=== PATIENT | female | born 1975 | race American Indian/Alaskan Native ===

== ENCOUNTER 2019-06-02 13:16 | Inpatient (IN) | payer OTHER ==
--- NOTE | 2019-06-02 13:22 | Event Note ---
ED Screening Note ED Screening Note: lower abd discomfort that began a week ago no N/V no diarrhea states she is straining to have BM +urinary frequency no dysuria LNMP: states the beginning of April This initial assessment/diagnostic orders/clinical plan/treatment(s) is/are subject to change based on patients health status, clinical progression and re- assessment by fellow clinical providers in the ED. Further treatment and workup at subsequent clinical providers discretion. Patient/guardian urged not to elope from the ED as their condition may be serious if not clinically assessed and managed. Initial orders include: UA, urine preg, XR abd
--- NOTE | 2019-06-02 14:20 | Emergency Department Report ---
ED Abdominal Pain HPI - General Chief Complaint: Abdominal Pain Stated Complaint: LOW ABDOMINAL PAIN Time Seen by Provider: 06/02/19 13:19 Source: patient Mode of arrival: Ambulatory Limitations: No Limitations - History of Present Illness MD Complaint: abdominal pain -: Gradual, days(s) (1) Location: LLQ Migration to: no migration Severity: moderate, severe Quality: stabbing, aching Consistency: constant Improves With: nothing Worsens With: nothing Associated Symptoms: nausea. denies: fever, hematemesis, hematochezia, hematu mireya, anorexia, syncope - Related Data Previous Rx's Medication Instructions Recorded Last Taken Type Doxycycline Monohydrate [Mondoxyne 100 mg PO BID #28 capsule 11/11/15 Unknown Rx Nl] Allergies Allergy/AdvReac Type Severity Reaction Status Date / Time No Known Allergies Allergy Unverified 06/09/15 14:53 ED Review of Systems ROS: Stated complaint: LOW ABDOMINAL PAIN Other details as noted in HPI Comment: All other systems reviewed and negative ED Past Medical Hx - Past Medical History Previous Medical History?: Yes Hx Hypertension: No Hx Congestive Heart Failure: No Hx Diabetes: No Hx Renal Disease: No Hx Seizures: No Hx Asthma: No Hx COPD: No Hx HIV: No - Surgical History Past Surgical History?: No - Social History Smoking Status: Current Every Day Smoker Substance Use Type: Alcohol, Marijuana - Medications Home Medications: Home Medications Medication Instructions Recorded Confirmed Last Taken Type Doxycycline Monohydrate [Mondoxyne 100 mg PO BID #28 capsule 11/11/15 Unknown Rx Nl] ED Physical Exam - General Limitations: No Limitations General appearance: alert, in no apparent distress - Head Head exam: Present: atraumatic, normocephalic - Eye Eye exam: Present: normal appearance - ENT ENT exam: Present: mucous membranes moist - Neck Neck exam: Present: normal inspection - Respiratory Respiratory exam: Present: normal lung sounds bilaterally. Absent: respiratory distress - Cardiovascular Cardiovascular Exam: Present: regular rate, normal rhythm. Absent: systolic murmur, diastolic murmur, rubs, gallop - GI/Abdominal GI/Abdominal exam: Present: soft, tenderness (left lower quadrant examination. No Rovsing, no Mcqueen Dodson, no tenderness at McBurney's.), guarding, normal bowel sounds. Absent: hyperactive bowel sounds, hypoactive bowel sounds - Extremities Exam Extremities exam: Present: normal inspection - Back Exam Back exam: Present: normal inspection - Neurological Exam Neurological exam: Present: alert, oriented X3 - Psychiatric Psychiatric exam: Present: normal affect, normal mood - Skin Skin exam: Present: warm, dry, intact, normal color. Absent: rash ED Course Vital Signs 06/02/19 13:20 Temperature 99.3 F Pulse Rate 116 H Respiratory 20 Rate Blood Pressure 149/81 O2 Sat by Pulse 99 Oximetry ED Medical Decision Making - Lab Data Result diagrams: 06/02/19 14:18 06/02/19 14:18 - Radiology Data Radiology results: report reviewed [facility] [address] [place] [address] Cat Scan Report Signed Patient: DEYANIRA LECHUGA MR# : [id number] : 1975 Acct:[id number] Age/Sex: 43 / F ADM Date: 06/02/19 Loc: ED Attending Dr: Ordering Physician: FILI PEDRO Date of Service: 06/02/19 Procedure(s): CT abdomen pelvis w con Accession Number(s): [id number] cc: FILI PEDRO CT ABDOMEN AND PELVIS WITH CONTRAST HISTORY: Left lower quadrant abdominal pain. COMPARISON: CT of the abdomen and pelvis on 11/10/2015. TECHNIQUE: Routine abdominal and pelvic CT exam performed following intravenous contrast administration. The patient received 100 mL of IV Omnipaque 300. All CT scans at this location are performed using CT dose reduction for ALARA by means of automated exposure control. FINDINGS: CT ABDOMEN: Lung Bases: No significant abnormality. Liver: No significant abnormality. Biliary: No significant abnormality. Spleen: No significant abnormality. Unenlarged. Pancreas: No significant abnormality. Adrenals: No significant abnormality. Kidneys: No significant abnormality. Lymphatics: No lymphadenopathy. Vasculature: No significant abnormality. Bowel/Peritoneum: No significant abnormality. No free air. No free fluid. Normal appendix. CT PELVIC: : There is an enlarged tubular structure in the left adnexa leading to the right ovary consistent with a hydrosalpinx/pyosalpinx. It measures 6.9 x 5.9 cm in greatest dimension. There is fat stranding adjacent to the dilated fallopian tube is well. The left ovary itself appears relatively normal. There is also mild dilation of the right fallopian tube. There is a small amount of free fluid layering in the pelvis. Lymphatics: No lymphadenopathy. Osseous Structures: No aggressive appearing osseous lesions. Additional Findings: None IMPRESSION: 1. Bilateral hydrosalpinx, left greater than right, with adjacent fat stranding near the left fallopian tube which may indicate pyosalpinx in the proper clinical setting. Signer Name: Enrique Terrazas MD Signed: 06/02/2019 6:21 PM Workstation Name: [id number] Transcribed By: GABBY Dictated By: Enrique Terrazas MD Electronically Authenticated By: Enrique Terrazas MD Signed Date/Time: 06/02/191820 DD/ 16 TD/TT: - Medical Decision Making 43-year-old female was most part of the left lower quadrant abdominal pain fine to have a pyosalpinx on CT of the abdomen abdomen in conjunctivae with a white count. Did discuss the case with SKEIN WASHER him that initially advised to admit to the hospitalist had refused upon: #2 she advised me to admit to mother baby Critical care attestation.: If time is entered above; I have spent that time in minutes in the direct care of this critically ill patient, excluding procedure time. ED Disposition Clinical Impression: Pyosalpinx Disposition: OP ADMIT IP TO THIS HOSP Is pt being admited?: Yes Does the pt Need Aspirin: No Condition: Stable
[2019-06-02] MEDS ORDERED: ONDANSETRON 4 MG/2 ML INJ IV STA (14:32)
[2019-06-02] MEDS ORDERED: SODIUM CHLORIDE 0.9% 1000 ML 1,000 ML IV ONE (14:32)
[2019-06-02] MEDS ORDERED: KETOROLAC 30 MG/1 ML INJ IV STA (14:32)
[2019-06-02 15:07] LABS: Basophils # (Auto) 0.1 K/mm3 (0.0-0.1); Basophils % (Auto) 0.4 % (0.0-1.8); Hematocrit 34.3 % (30.3-42.9); Hemoglobin 11.5 gm/dl (10.1-14.3); Lymphocytes # (Auto) 2.2 K/mm3 (1.2-5.4); Lymphocytes % (Auto) 12.7 % (13.4-35.0); Mean Corpuscular HGB Conc 34 % (30-34); Mean Corpuscular Volume 95 fl (79-97); Monocytes # (Auto) 1.6 K/mm3 (0.0-0.8); Monocytes % (Auto) 8.9 % (0.0-7.3); Platelet Count 444 K/mm3 (140-440); Red Cell Distribution Width 14.7 % (13.2-15.2)
[2019-06-02 15:19] LABS: Alanine Aminotransferase 16 units/L (7-56); Albumin 3.8 g/dL (3.9-5); BUN/Creatinine Ratio 6; Blood Urea Nitrogen 5 mg/dL (7-17); Calcium 9.8 mg/dL (8.4-10.2); Hemolysis Index 2
[2019-06-02 17:04] LABS: Bacteria,Urine 1+ /HPF (Negative); Bilirubin,Urine NEG (Negative); Blood,Urine SM (Negative); Color,Urine Yellow (Yellow); HCG Qualitative,Urine Negative (Negative); Mucus,Urine FEW /HPF; Protein,Urine <15 mg/dL mg/dL (Negative)
--- NOTE | 2019-06-02 18:25 | Cat Scan Report ---
CT ABDOMEN AND PELVIS WITH CONTRAST HISTORY: Left lower quadrant abdominal pain. COMPARISON: CT of the abdomen and pelvis on 11/10/2015. TECHNIQUE: Routine abdominal and pelvic CT exam performed following intravenous contrast administrat ion. The patient received 100 mL of IV Omnipaque 300. All CT scans at this location are performed usi ng CT dose reduction for ALARA by means of automated exposure control. FINDINGS: CT ABDOMEN: Lung Bases: No significant abnormality. Liver: No significant abnormality. Biliary: No significant abnormality. Spleen: No significant abnormality. Unenlarged. Pancreas: No significant abnormality. Adrenals: No significant abnormality. Kidneys: No significant abnormality. Lymphatics: No lymphadenopathy. Vasculature: No significant abnormality. Bowel/Peritoneum: No significant abnormality. No free air. No free fluid. Normal appendix. CT PELVIC: : There is an enlarged tubular structure in the left adnexa leading to the right ovary consistent w ith a hydrosalpinx/pyosalpinx. It measures 6.9 x 5.9 cm in greatest dimension. There is fat stranding adjacent to the dilated fallopian tube is well. The left ovary itself appears relatively normal. The re is also mild dilation of the right fallopian tube. There is a small amount of free fluid layering in the pelvis. Lymphatics: No lymphadenopathy. Osseous Structures: No aggressive appearing osseous lesions. Additional Findings: None IMPRESSION: 1. Bilateral hydrosalpinx, left greater than right, with adjacent fat stranding near the left fallopi an tube which may indicate pyosalpinx in the proper clinical setting. Signer Name: Enrique Terrazas MD Signed: 06/02/2019 6:21 PM Workstation Name: [id number]
[2019-06-02] MEDS ORDERED: PIPERACILLIN/TAZOBACTAM 3.375 3.375 GM/50 ML BAG IV STA (19:07)
[2019-06-02] MEDS: oxyCODONE /ACETAMINOPHEN 5-325MG TAB PO PRN (22:13)
[2019-06-02] MEDS: LACTATED RINGERS 1,000 ML IV SCH (22:14)
[2019-06-02] MEDS: DOXYCYCLINE HYCLATE 100 MG in SODIUM CHLORIDE 0.9% 250ML 250 ML IV SCH (22:21)
[2019-06-03] MEDS: metroNIDAZOLE/NS 500 MG/100 ML 500 MG/100 ML BAG IV SCH ×4 (01:28→19:38)
[2019-06-03] MEDS: oxyCODONE /ACETAMINOPHEN 5-325MG TAB PO PRN ×4 (02:51→18:16)
[2019-06-03] MEDS: ceFAZolin/NS 1 GM/50 ML 1 GM/50 ML BAG IV SCH ×2 (06:30→15:00)
[2019-06-03] MEDS: LACTATED RINGERS 1,000 ML IV SCH (10:08)
[2019-06-03] MEDS: DOXYCYCLINE HYCLATE 100 MG in SODIUM CHLORIDE 0.9% 250ML 250 ML IV SCH ×2 (10:09→22:38)
--- NOTE | 2019-06-03 12:12 | Progress Note ---
Assessment and Plan A/P Abdominal pain Hydrosalpinx wbc high -repeat today on unasyn continue close monitor may consider ID if not resolving Subjective - Subjective Date of service: 06/03/19 Principal diagnosis: abdominal pain, hydrosalpinx Patient reports: no new complaints, no loss of fluid, no vaginal bleeding, no movement normal, no contractions Objective - Vital Signs Vital Signs: Vital Signs - 12hr 06/03/19 06/03/19 06/03/19 02:51 03:51 04:00 Temperature 98.7 F Pulse Rate 75 Respiratory 18 18 18 Rate Blood Pressure Blood Pressure 109/68 [Left] O2 Sat by Pulse Oximetry 06/03/19 06/03/19 07:53 07:59 Temperature 100.4 F H Pulse Rate 89 Respiratory 20 18 Rate Blood Pressure 96/48 Blood Pressure [Left] O2 Sat by Pulse 96 Oximetry - Exam Breasts: normal Cardiovascular: Regular rate, Normal S1 Lungs: Clear to auscultation, Normal air movement Abdomen: Present: normal appearance, soft, normal bowel sounds. Absent: distention, tenderness, guarding Uterus: Present: normal, firm, fundal height below umbilicus. Absent: bogginess, tenderness - Labs Labs: Abnormal Labs 06/02/19 06/02/19 06/02/19 14:18 14:18 Unknown WBC 17.6 H RBC 3.60 L Plt Count 444 H Lymph % (Auto) 12.7 L [place] % (Auto) 8.9 H [place]bot # 1.6 H Seg Neutrophils % 78.0 H Seg Neutrophils # 13.7 H Sodium 133 L Chloride 94.3 L Carbon Dioxide 19 L BUN 5 L Glucose 110 H Albumin 3.8 L Lipase 9 L Urine pH 8.0 H Urine WBC (Auto) 9.0 H Laboratory Results - last 24 hr 06/02/19 06/02/19 06/02/19 14:18 14:18 Unknown WBC 17.6 H RBC 3.60 L Hgb 11.5 Hct 34.3 MCV 95 MCH 32 MCHC 34 RDW 14.7 Plt Count 444 H Lymph % (Auto) 12.7 L [place] % (Auto) 8.9 H Eos % (Auto) 0.0 Baso % (Auto) 0.4 Lymph # 2.2 [place]bot # 1.6 H Eos # 0.0 Baso # 0.1 Seg Neutrophils % 78.0 H Seg Neutrophils # 13.7 H Sodium 133 L Potassium 3.6 Chloride 94.3 L Carbon Dioxide 19 L Anion Gap 23 BUN 5 L Creatinine 0.9 Estimated GFR > 60 BUN/Creatinine Ratio 6 Glucose 110 H Calcium 9.8 Total Bilirubin 0.50 AST 11 ALT 16 Alkaline Phosphatase 83 Total Protein 8.0 Albumin 3.8 L Albumin/Globulin Ratio 0.9 Lipase 9 L Urine Color Yellow Urine Turbidity Slightly-cloudy Urine pH 8.0 H Ur Specific [place] 1.011 Urine Protein <15 mg/dl Urine Glucose (UA) Neg Urine Ketones Neg Urine Blood Sm Urine Nitrite Neg Ur Reducing Substances Not Reportable Urine Bilirubin Neg Urine Ictotest Not Reportable Urine Urobilinogen 4.0 Ur Leukocyte Esterase Mod Urine WBC (Auto) 9.0 H Urine RBC (Auto) 27.0 U Epithel Cells (Auto) 12.0 Urine Bacteria (Auto) 1+ Urine Mucus Few Urine Yeast (Budding) Few Urine HCG, Qual Negative
[2019-06-03 15:38] LABS: Basophils % (Auto) 0.2 % (0.0-1.8); Eosinophils % (Auto) 0.2 % (0.0-4.3); Hematocrit 29.6 % (30.3-42.9); Lymphocytes # (Auto) 1.6 K/mm3 (1.2-5.4); Lymphocytes % (Auto) 10.9 % (13.4-35.0); Mean Corpuscular HGB Conc 34 % (30-34); Mean Corpuscular Volume 96 fl (79-97); Monocytes # (Auto) 1.3 K/mm3 (0.0-0.8); Monocytes % (Auto) 9.2 % (0.0-7.3); Platelet Count 422 K/mm3 (140-440); Red Blood Count 3.09 M/mm3 (3.65-5.03); Red Cell Distribution Width 14.5 % (13.2-15.2)
[2019-06-03 18:06] LABS: Bacteria,Urine 1+ /HPF (Negative)
[2019-06-04] MEDS: oxyCODONE /ACETAMINOPHEN 5-325MG TAB PO PRN ×4 (00:07→22:34)
[2019-06-04] MEDS: ceFAZolin/NS 1 GM/50 ML 1 GM/50 ML BAG IV SCH ×2 (00:12→07:54)
[2019-06-04] MEDS: metroNIDAZOLE/NS 500 MG/100 ML 500 MG/100 ML BAG IV SCH ×4 (02:09→20:48)
[2019-06-04] MEDS: LACTATED RINGERS 1,000 ML IV SCH ×2 (04:15→20:48)
--- NOTE | 2019-06-04 08:13 | Progress Note ---
Assessment and Plan A: HD#3 Bilateral hydrosalpinx on Unasyn with fever this morning P: Consult ID regarding possible antibiotic regimen change Consult Interventional Radiology regarding possible CT guided drainage CBC pending Subjective - Subjective Date of service: 06/04/19 Principal diagnosis: abdominal pain, hydrosalpinx Interval history: Pt reports that her pelvic pain is improving, still left greater than right. She did have a fever of 101.6 around 5:15 am however. CBC for this morning is pending. Patient reports: appetite normal, voiding normally, pain well controlled, flatus, ambulating normally Objective - Vital Signs Latest vital signs: Vital Signs Temp Pulse Resp BP Pulse Ox 06/04/19 05:17 101.6 F H 89 20 118/64 96 06/04/19 01:15 100.2 F H 89 20 131/63 98 06/04/19 00:07 18 06/03/19 20:06 99.4 F 89 18 116/59 98 06/03/19 16:08 98.3 F 78 18 122/69 99 06/03/19 12:33 98.9 F 80 18 110/52 100 Intake and Output 06/03/19 06/04/19 06/04/19 22:59 06:59 14:59 Intake Total 1200 510 Output Total 1200 400 Balance 0 110 Intake: IV 1000 150 ANCEF/NS 1 GM/50 ML 1 gm 50 In 50 ml @ 100 mls/hr IV Q8H VAZQUEZ Rx#:[id number] FLAGYL 500 MG/100 ML 500 100 mg In 100 ml @ 100 mls/hr IV Q6H VAZQUEZ Rx#:[id number] Lactated Ringers 1,000 ml 1000 @ 125 mls/hr IV DIRECT VAZQUEZ Rx#:[id number] Oral 200 Intake, Free Water 360 Output: Urine 1200 400 Void 1200 400 Other: Total, Intake Amount 200 Total, Output Amount 500 400 - Exam Breasts: Present: deferred Cardiovascular: Present: Regular rate Lungs: Present: Clear to auscultation Abdomen: Present: soft (obese ), tenderness (Bilateral lower quadrants, left greater than right ) Extremities: Present: normal - Labs Labs: Abnormal lab results 06/03/19 Range/Units 15:17 WBC 14.4 H (4.5-11.0) K/mm3 RBC 3.09 L (3.65-5.03) M/mm3 Hgb 10.0 L (10.1-14.3) gm/dl Hct 29.6 L (30.3-42.9) % MCH 33 H (28-32) pg Lymph % (Auto) 10.9 L (13.4-35.0) % [place] % (Auto) 9.2 H (0.0-7.3) % [place]ney # 1.3 H (0.0-0.8) K/mm3 Seg Neutrophils % 79.5 H (40.0-70.0) % Seg Neutrophils # 11.5 H (1.8-7.7) K/mm3
[2019-06-04 08:59] LABS: Basophils # (Auto) 0.1 K/mm3 (0.0-0.1); Basophils % (Auto) 0.7 % (0.0-1.8); Eosinophils % (Auto) 0.1 % (0.0-4.3); Hematocrit 29.8 % (30.3-42.9); Hemoglobin 10.2 gm/dl (10.1-14.3); Lymphocytes # (Auto) 1.6 K/mm3 (1.2-5.4); Lymphocytes % (Auto) 11.8 % (13.4-35.0); Mean Corpuscular HGB Conc 34 % (30-34); Mean Corpuscular Volume 95 fl (79-97); Monocytes # (Auto) 1.5 K/mm3 (0.0-0.8); Monocytes % (Auto) 10.5 % (0.0-7.3); Platelet Count 460 K/mm3 (140-440); Red Blood Count 3.15 M/mm3 (3.65-5.03); Red Cell Distribution Width 14.8 % (13.2-15.2)
--- NOTE | 2019-06-04 14:17 | Consultation ---
History of Present Illness - Reason for Consult Consult date: 06/04/19 Sepsis, Pyosalpinx, PID Requesting physician: DAMON PACHECO - History of Present Illness The patient is a 43-year-old female with h/o ectopic a few years ago. She was admitted with 1 week of abdominal pain, fever. Initially had some loose stools, resolved now. She is sexually active. Noted vaginal discharge on the day of admission. Prior h/o Chlamydia. Due to ongoing fevers and CT findings of possible PID, hydro/pyosalpinx ID was consulted for abx recommendations. Review of Systems: General: + for fevers HEENT: no new visual disturbance Respiratory: No cough, sputum, hemoptysis or shortness of breath Cardiovascular: No chest pain, syncope Gastrointestinal: No nausea, vomiting or diarrhea Genitourinary: No dysuria or hematuria Musculoskeletal: No new or worsening neck pain or back pain Neurologic: No headaches, seizures Hematologic: No easy bruising or bleeding Endocrine: No night sweats or acute weight loss Skin: negative for rash, jaundice Psychiatric: No suicidal or homicidal ideation Medications and Allergies Allergies Allergy/AdvReac Type Severity Reaction Status Date / Time No Known Allergies Allergy Unverified 06/09/15 14:53 Home Medications Medication Instructions Recorded Confirmed Last Taken Type No Known Home Medications [No 06/02/19 06/02/19 Unknown History Reported Home Medications] Active Meds: Active Medications Doxycycline Hyclate 100 mg/ (Sodium Chloride) 250 mls @ 250 mls/hr IV Q12HR VAZQUEZ; Protocol Last Admin: 06/03/19 22:38 Dose: 250 mls/hr Documented by: Lactated Ringer's (Lactated Ringers) 1,000 mls @ 125 mls/hr IV DIRECT VAZQUEZ Last Admin: 06/04/19 04:15 Dose: 125 mls/hr Documented by: Metronidazole (Flagyl 500 Mg/100 Ml) 500 mg in 100 mls @ 100 mls/hr IV Q6H VAZQUEZ; Protocol Last Admin: 06/04/19 07:53 Dose: 100 mls/hr Documented by: Ceftriaxone Sodium (Rocephin/Ns 2 Gm/100 Ml) 2 gm in 100 mls @ 200 mls/hr IV Q24HR VAZQUEZ; Protocol Ibuprofen (Ibuprofen) 600 mg PO Q8H PRN PRN Reason: Pain, Mild (1-3) Oxycodone/Acetaminophen (Percocet 5/325) 1 tab PO Q4H PRN PRN Reason: Pain, Moderate (4-6) Last Admin: 06/04/19 08:13 Dose: 1 tab Documented by: Physical Examination - Physical Exam Narrative exam: Physical Exam: Constitutional: Alert, cooperative. No acute distress Head, Ears, Nose: Normocephalic, atraumatic. External ears, nose normal Eyes: Conjunctivae/corneas clear. No icterus. No ptosis. Neck: Supple, no meningeal signs Cardiovascular: S1, S2 normal. Respiratory: Good air entry, clear to auscultation bilaterally GI: b/l lower abdominal tenderness +, bowel sounds normal. No peritoneal signs Musculoskeletal: No pedal edema, no cyanosis. Skin: No rash or abscess Hem/Lymphatic: No palpable cervical or supraclavicular nodes. No lymphangitis Psych: Mood ok. Affect normal Neurological: Awake, alert, oriented. No gross abnormality - Constitutional Vitals: Vital Signs Temp Pulse Resp BP Pulse Ox 98.9 F 81 18 127/63 96 06/04/19 12:13 06/04/19 12:13 06/04/19 12:13 06/04/19 12:13 06/04/19 05:17 Temperature -Last 24 Hours Temperature 98.9 F Temperature 99.6 F Temperature 101.6 F Temperature 100.2 F Temperature 99.4 F Temperature 98.3 F Results - Labs CBC & Chem 7: 06/04/19 08:22 06/02/19 14:18 Labs: Abnormal lab results 06/03/19 06/04/19 Range/Units 15:17 08:22 WBC 14.4 H 13.9 H (4.5-11.0) K/mm3 RBC 3.09 L 3.15 L (3.65-5.03) M/mm3 Hgb 10.0 L (10.1-14.3) gm/dl Hct 29.6 L 29.8 L (30.3-42.9) % MCH 33 H (28-32) pg Plt Count 460 H (140-440) K/mm3 Lymph % (Auto) 10.9 L 11.8 L (13.4-35.0) % [place] % (Auto) 9.2 H 10.5 H (0.0-7.3) % [place] # 1.3 H 1.5 H (0.0-0.8) K/mm3 Seg Neutrophils % 79.5 H 76.9 H (40.0-70.0) % Seg Neutrophils # 11.5 H 10.7 H (1.8-7.7) K/mm3 - Imaging and Cardiology CT scan - abdomen: report reviewed, image reviewed (b/l hydro v/s pyosalpinx) Assessment and Plan Cultures: A/P: 43/F with prior h/o ectopic , Chlamydia admitted with lower abdominal pain and fever, found to have: 1) Sepsis 2) Leucocytosis 3) B/L Hydrosalpinx v/s Pyosalpinx Recs: Cefazolin switched to Ceftriaxone continue Flagyl and Doxycycline STD screen ordered (GC, syphilis and HIV - patient agreeable) Awaiting IR drainage. Please send fluid for cultures Will follow. Jean-Claude Lockhart MD, FACP [facility] C: [phone] O: [phone] F: [phone]
--- NOTE | 2019-06-04 14:28 | Event Note ---
Date: 06/04/[address] scan and vitals/labs. Plan for CT guided placement of a 8 Fr drain in the pyosalpinx tomorrow. NPO after MN except sips of water with meds.
[2019-06-04] MEDS: IBUPROFEN 600 MG TAB PO PRN ×2 (14:44→23:49)
[2019-06-04] MEDS: cefTRIAXone/NS 2 GM/100 ML 2 GM/100 ML BAG IV SCH (15:00)
[2019-06-04] MEDS: DOXYCYCLINE HYCLATE 100 MG in SODIUM CHLORIDE 0.9% 250ML 250 ML IV SCH ×2 (17:02→22:22)
--- NOTE | 2019-06-05 01:15 | Ultrasound Report ---
ULTRASOUND PELVIS INDICATION: abdominal pain. TECHNIQUE: Pelvic ultrasound from 11/10/2015. Duplex Color Doppler used: Yes. COMPARISON: None available FINDINGS: Uterus: Present. Size: 13.5 x 6.8 x 8.8 cm. Endometrial complex: Normal measuring 0.11 cm. Mass lesions: Multiple fibroids are seen throughout the uterus measuring up to 5 cm. Additional findings: None. Right Ovary: Size: 5.0 x 4.2 x 5.1 cm Blood flow: Normal. Cyst or mass: There is a 3 cm cyst without visualization of solid lesions. Left Ovary: Size: 4.3 x 3.0 x 3.3 cm Blood flow: Normal. Cyst or mass: None. Urinary Bladder: No significant abnormality. Free Fluid: None. Additional Findings: None. IMPRESSION: 1. No acute sonographic abnormality of the pelvis. 2. Multiple uterine fibroids. 3. Right ovarian cyst measuring 3 cm is likely benign. No follow-up imaging is indicated at this time . Signer Name: Jemal Cisneros MD Signed: 06/05/2019 1:10 AM Workstation Name: [id number]
[2019-06-05] MEDS: metroNIDAZOLE/NS 500 MG/100 ML 500 MG/100 ML BAG IV SCH ×4 (04:00→20:31)
--- NOTE | 2019-06-05 08:33 | Progress Note ---
Assessment and Plan A/P HD#2 Hydrosalpinx, sepsis ID changed abx to ceftriaxone , flagy, and doxy awaiting IR drainage continue present mgt Subjective - Subjective Date of service: 06/05/19 Principal diagnosis: abdominal pain, hydrosalpinx Patient reports: appetite normal, voiding normally, pain well controlled Objective - Vital Signs Latest vital signs: Vital Signs Temp Pulse Resp BP BP Pulse Ox 06/05/19 05:03 98.3 F 81 20 123/61 99 06/05/19 01:29 99.5 F 80 18 123/68 100 06/04/19 20:21 98.2 F 75 20 116/64 99 06/04/19 16:54 98.4 F 77 18 101/53 06/04/19 12:13 98.9 F 81 18 127/63 Intake and Output 06/04/19 06/05/19 06/05/19 23:59 07:59 15:59 Intake Total 1310 100 Output Total 900 Balance 410 100 Intake: IV 350 100 Doxycycline Hyclate 100 250 mg In NaCl 0.9% 250Ml 250 ml @ 250 mls/hr IV Q12HR [facility]ZQUEZ Rx#:[id number] FLAGYL 500 MG/100 ML 500 100 100 mg In 100 ml @ 100 mls/hr IV Q6H VAZQUEZ Rx#:[id number] Oral 480 Intake, Free Water 480 Output: Urine 900 Void 900 Other: Total, Intake Amount 480 Total, Output Amount 900 # Voids Void 1 1 - Exam Breasts: Present: normal Cardiovascular: Present: Regular rate, Normal S1 Lungs: Present: Clear to auscultation, Normal air movement Abdomen: Present: normal appearance, soft, normal bowel sounds. Absent: distention, tenderness, guarding Vulva: both: normal Uterus: Present: normal Extremities: Present: normal Deep Tendon Reflex Grade: Normal +2 - Labs Labs: Abnormal lab results 06/04/19 Range/Units 08:22 WBC 13.9 H (4.5-11.0) K/mm3 RBC 3.15 L (3.65-5.03) M/mm3 Hct 29.8 L (30.3-42.9) % Plt Count 460 H (140-440) K/mm3 Lymph % (Auto) 11.8 L (13.4-35.0) % [place] % (Auto) 10.5 H (0.0-7.3) % Bond # 1.5 H (0.0-0.8) K/mm3 Seg Neutrophils % 76.9 H (40.0-70.0) % Seg Neutrophils # 10.7 H (1.8-7.7) K/mm3
[2019-06-05] MEDS: DOXYCYCLINE HYCLATE 100 MG in SODIUM CHLORIDE 0.9% 250ML 250 ML IV SCH ×3 (08:49→22:25)
[2019-06-05] MEDS: oxyCODONE /ACETAMINOPHEN 5-325MG TAB PO PRN ×4 (08:50→23:07)
[2019-06-05] MEDS ORDERED: MIDAZOLAM 5 MG/5 ML INJ MDV IV ONE ×2 (11:26→12:24)
[2019-06-05] MEDS ORDERED: fentaNYL 100 MCG/2 ML INJ IV ONE ×2 (11:26→13:18)
[2019-06-05] MEDS ORDERED: fentaNYL 100 MCG/2 ML INJ ONE ×2 (12:25→12:47)
[2019-06-05] MEDS ORDERED: LIDOCAINE 1%/EPINEPHRINE 1:100,000 VIAL (20 ML) INFILTRATI ONE (12:39)
--- NOTE | 2019-06-05 13:28 | Post Operative Note ---
Date of procedure: 06/05/19 Pre-op diagnosis: Bilateral pyosalpinx Post-op diagnosis: same Findings: CT guided drainage of the right pyosalpinx with a 8 Fr drain - 30 mL green purulent material removed Procedure: CT guided drainage of the right pyosalpinx with a 8 Fr drain - 30 mL green purulent material removed Anesthesia: local (w/ conscious sedation) Surgeon: ORTIZ GILL Estimated blood loss: minimal Condition: stable Disposition: floor
[2019-06-05] MEDS: MORPHINE 2 MG/1 ML INJ IV PRN ×2 (14:30→20:41)
--- NOTE | 2019-06-05 15:05 | Progress Note ---
Assessment and Plan Cultures: Blood culture: negative IR aspirate culture: in process. GPC on Gram stain. HIV, Syphilis negative. A/P: 43/F with prior h/o ectopic , Chlamydia admitted with lower abdominal pain and fever, found to have: 1) Sepsis 2) Leucocytosis 3) B/L Hydrosalpinx v/s Pyosalpinx: s/p CT guided drainage of the right pyosalpinx with a 8 Fr drain - 30 mL green purulent material removed Recs: continue Ceftriaxone, Flagyl and Doxycycline f/u IR drainage culture monitor fever and WBC, if improved, could do PO abx upon discharge depending on culture results Jean-Claude Lockhart MD, FACP [facility] C: [phone] O: [phone] F: [phone] Subjective Date of service: 06/05/19 Principal diagnosis: abdominal pain, hydrosalpinx Interval history: No fever. Had CT guided drainage of the right pyosalpinx with a 8 Fr drain - 30 mL green purulent material removed by Dr. Fuentes. Complains of ongoing abdominal pain, no improvement. Objective - Exam Narrative Exam: Physical Exam: Constitutional: Alert, cooperative. No acute distress Head, Ears, Nose: Normocephalic, atraumatic. External ears, nose normal Eyes: Conjunctivae/corneas clear. No icterus. No ptosis. Neck: Supple, no meningeal signs Cardiovascular: S1, S2 normal. Respiratory: Good air entry, clear to auscultation bilaterally GI: b/l lower abdominal tenderness +, R abdomen dressing +. bowel sounds normal. Musculoskeletal: No pedal edema, no cyanosis. Skin: No rash or abscess Hem/Lymphatic: No palpable cervical or supraclavicular nodes. No lymphangitis Psych: Mood ok. Affect normal Neurological: Awake, alert, oriented. No gross abnormality - Constitutional Vitals: Vital Signs Temp Pulse Resp BP Pulse Ox 98.3 F 83 20 115/69 97 06/05/19 07:21 06/05/19 13:30 06/05/19 13:30 06/05/19 13:30 06/05/19 13:30 Temperature -Last 24 Hours Temperature 98.3 F Temperature 98.3 F Temperature 99.5 F Temperature 98.2 F Temperature 98.4 F - Labs CBC & Chem 7: 06/04/19 08:22 06/02/19 14:18
[2019-06-05] MEDS: cefTRIAXone/NS 2 GM/100 ML 2 GM/100 ML BAG IV SCH (16:54)
[2019-06-05] MEDS: LACTATED RINGERS 1,000 ML IV SCH (22:56)
[2019-06-06] MEDS: MORPHINE 2 MG/1 ML INJ IV PRN ×2 (03:08→10:35)
[2019-06-06] MEDS: metroNIDAZOLE/NS 500 MG/100 ML 500 MG/100 ML BAG IV SCH ×4 (03:09→21:31)
[2019-06-06 04:10] LABS: Basophils % (Auto) 0.2 % (0.0-1.8); Eosinophils % (Auto) 0.1 % (0.0-4.3); Hematocrit 28.7 % (30.3-42.9); Hemoglobin 9.8 gm/dl (10.1-14.3); Lymphocytes # (Auto) 1.4 K/mm3 (1.2-5.4); Lymphocytes % (Auto) 8.6 % (13.4-35.0); Mean Corpuscular HGB Conc 34 % (30-34); Mean Corpuscular Volume 96 fl (79-97); Monocytes % (Auto) 5.9 % (0.0-7.3); Platelet Count 519 K/mm3 (140-440); Red Cell Distribution Width 15.1 % (13.2-15.2)
[2019-06-06] MEDS: oxyCODONE /ACETAMINOPHEN 5-325MG TAB PO PRN ×2 (07:02→16:19)
[2019-06-06] MEDS: cefTRIAXone/NS 2 GM/100 ML 2 GM/100 ML BAG IV SCH (10:33)
[2019-06-06] MEDS: LACTATED RINGERS 1,000 ML IV SCH ×2 (10:35→23:50)
[2019-06-06] MEDS: DOXYCYCLINE HYCLATE 100 MG in SODIUM CHLORIDE 0.9% 250ML 250 ML IV SCH ×2 (11:00→21:31)
--- NOTE | 2019-06-06 12:11 | Progress Note ---
Assessment and Plan A: HD#4 Bilateral hydrosalpinx on Rocephin, Flagyl and Doxycycline POD#1 s/p CT guided drainage P: Continue routine postop care Restart Toradol Subjective - Subjective Date of service: 06/06/19 Principal diagnosis: abdominal pain, hydrosalpinx Interval history: Pt reports suboptimal pain control. Patient reports: appetite normal, voiding normally, flatus, pain poorly controlled, ambulating normally Objective - Vital Signs Latest vital signs: Vital Signs Temp Pulse Pulse Pulse Pulse Resp Resp 06/06/19 08:20 98.8 F 86 18 06/06/19 05:30 98.8 F 87 18 06/06/19 01:24 98.4 F 89 20 06/05/19 20:31 98.7 F 84 20 06/05/19 13:30 83 06/05/19 13:15 88 06/05/19 13:00 86 19 06/05/19 12:55 87 21 06/05/19 12:50 87 19 06/05/19 12:45 83 15 06/05/19 12:40 74 18 06/05/19 12:35 70 20 06/05/19 12:18 69 Resp Resp BP BP BP BP Pulse Ox 06/06/19 08:20 136/74 97 06/06/19 05:30 128/70 93 06/06/19 01:24 123/62 94 06/05/19 20:31 126/76 95 06/05/19 13:30 20 115/69 06/05/19 13:15 15 114/71 06/05/19 13:00 119/64 06/05/19 12:55 119/62 06/05/19 12:50 131/67 06/05/19 12:45 132/77 06/05/19 12:40 139/77 06/05/19 12:35 130/77 06/05/19 12:18 18 140/77 Pulse Ox Pulse Ox Pulse Ox 06/06/19 08:20 06/06/19 05:30 06/06/19 01:24 06/05/19 20:31 06/05/19 13:30 97 06/05/19 13:15 99 06/05/19 13:00 99 06/05/19 12:55 99 06/05/19 12:50 99 06/05/19 12:45 98 06/05/19 12:40 98 06/05/19 12:35 98 06/05/19 12:18 100 Intake and Output 06/05/19 06/06/19 06/06/19 22:59 06:59 14:59 Intake Total 100 1340 240 Output Total 500 550 Balance 100 840 -310 Intake: IV 100 1100 FLAGYL 500 MG/100 ML 500 100 100 mg In 100 ml @ 100 mls/hr IV Q6H [facility] Rx#:[id number] Lactated Ringers 1,000 ml 1000 @ 125 mls/hr IV DIRECT [facility]ZQUEZ Rx#:[id number] Oral 240 Intake, Free Water 240 Output: Urine 500 550 Void 500 550 Other: Total, Intake Amount 240 Total, Output Amount 500 550 Voiding Method Toilet # Voids Void 1 2 - Exam Breasts: Present: deferred Cardiovascular: Present: Regular rate Lungs: Present: Clear to auscultation Abdomen: Present: soft Incision: Present: dressed - Labs Labs: Abnormal lab results 06/06/19 Range/Units 03:52 WBC 16.4 H (4.5-11.0) K/mm3 RBC 3.00 L (3.65-5.03) M/mm3 Hgb 9.8 L (10.1-14.3) gm/dl Hct 28.7 L (30.3-42.9) % MCH 33 H (28-32) pg Plt Count 519 H (140-440) K/mm3 Lymph % (Auto) 8.6 L (13.4-35.0) % [place] # 1.0 H (0.0-0.8) K/mm3 Seg Neutrophils % 85.2 H (40.0-70.0) % Seg Neutrophils # 13.9 H (1.8-7.7) K/mm3
[2019-06-06] MEDS: KETOROLAC 30 MG/1 ML INJ IV SCH ×2 (12:34→20:15)
--- NOTE | 2019-06-06 13:37 | Progress Note ---
Assessment and Plan Cultures: Blood culture: negative IR aspirate culture: in process. GPC on Gram stain. HIV, Syphilis negative. A/P: 43/F with prior h/o ectopic , Chlamydia admitted with lower abdominal pain and fever, found to have: 1) Sepsis 2) Leucocytosis 3) B/L Hydrosalpinx v/s Pyosalpinx: s/p CT guided drainage of the right pyosalpinx with a 8 Fr drain - 30 mL green purulent material removed Recs: WBC remains elevated. Continue Ceftriaxone, Flagyl and Doxycycline f/u IR drainage culture results monitor fever and WBC, if improved, could do PO abx upon discharge depending on culture results If WBC continues to rise, may need to consider additional drainage Jean-Claude Lockhart MD, FACP [facility] ([facility] C: [phone] O: [phone] F: [phone] Subjective Date of service: 06/06/19 Principal diagnosis: abdominal pain, hydrosalpinx Interval history: No fever. Sleepy but appears comfortable. Eating well. States she still has abdominal pain but better controlled with meds. Objective - Exam Narrative Exam: Physical Exam: Constitutional: Alert, cooperative. No acute distress Head, Ears, Nose: Normocephalic, atraumatic. External ears, nose normal Eyes: Conjunctivae/corneas clear. No icterus. No ptosis. Neck: Supple, no meningeal signs Cardiovascular: S1, S2 normal. Respiratory: Good air entry, clear to auscultation bilaterally GI: b/l lower abdominal tenderness +, R abdomen dressing +. bowel sounds normal. Musculoskeletal: No pedal edema, no cyanosis. Skin: No rash or abscess Hem/Lymphatic: No palpable cervical or supraclavicular nodes. No lymphangitis Psych: Mood ok. Affect normal Neurological: Awake, alert, oriented. No gross abnormality - Constitutional Vitals: Vital Signs Temp Pulse Resp BP Pulse Ox 98.8 F 86 18 136/74 97 06/06/19 08:20 06/06/19 08:20 06/06/19 08:20 06/06/19 08:20 06/06/19 08:20 Temperature -Last 24 Hours Temperature 98.8 F Temperature 98.8 F Temperature 98.4 F Temperature 98.7 F - Labs CBC & Chem 7: 06/06/19 03:52 06/02/19 14:18 Labs: Abnormal lab results 06/06/19 Range/Units 03:52 WBC 16.4 H (4.5-11.0) K/mm3 RBC 3.00 L (3.65-5.03) M/mm3 Hgb 9.8 L (10.1-14.3) gm/dl Hct 28.7 L (30.3-42.9) % MCH 33 H (28-32) pg Plt Count 519 H (140-440) K/mm3 Lymph % (Auto) 8.6 L (13.4-35.0) % [place] # 1.0 H (0.0-0.8) K/mm3 Seg Neutrophils % 85.2 H (40.0-70.0) % Seg Neutrophils # 13.9 H (1.8-7.7) K/mm3
[2019-06-07] MEDS: metroNIDAZOLE/NS 500 MG/100 ML 500 MG/100 ML BAG IV SCH ×4 (01:45→21:27)
[2019-06-07] MEDS: KETOROLAC 30 MG/1 ML INJ IV SCH ×4 (01:45→17:47)
[2019-06-07 06:08] LABS: Basophils % (Auto) 0.3 % (0.0-1.8); Eosinophils % (Auto) 0.2 % (0.0-4.3); Hematocrit 27.1 % (30.3-42.9); Hemoglobin 9.3 gm/dl (10.1-14.3); Lymphocytes # (Auto) 1.5 K/mm3 (1.2-5.4); Lymphocytes % (Auto) 11.8 % (13.4-35.0); Mean Corpuscular HGB Conc 34 % (30-34); Mean Corpuscular Volume 95 fl (79-97); Monocytes % (Auto) 7.7 % (0.0-7.3); Platelet Count 536 K/mm3 (140-440); Red Blood Count 2.86 M/mm3 (3.65-5.03); Red Cell Distribution Width 15.1 % (13.2-15.2)
--- NOTE | 2019-06-07 10:18 | Cat Scan Report ---
CT ABDOMEN AND PELVIS WITH CONTRAST HISTORY: pyosalpynx. COMPARISON: 06/03/2019. 06/05/2019. TECHNIQUE: Helical CT images of the abdomen and pelvis were obtained following administration of intr avenous contrast. Sagittal and coronal reformatted images were reviewed. All CT scans at this [facility] are performed using CT dose reduction for ALARA by means of automated exposure control. CONTRAST: 100 ml of intravenous contrast administered. FINDINGS: Abdomen/pelvis: The percutaneous drain in place in the right fallopian tubule remains in good positi on. Fluid/pus in the right fallopian tubule has essentially resolved. There is a mild degree of fluid inferior to the fallopian tubule which is unchanged and measuring 7.5 x 4.5 cm in axial plane. This may represent an ovarian cyst. Left hydrosalpinx or pyosalpinx has decreased by 10-20%. Mild uterine fibroid disease is again noted. Normal liver, biliary system, pancreas, spleen, kidneys, adrenal glands, aorta, bladder and bowel loo ps. Normal appendix. Lungs/bones: Trace bilateral pleural effusions have developed. Normal heart size. Mild lumbar spondy losis. IMPRESSION: Right pyosalpinx has essentially resolved. The percutaneous drain remains in good position. There is however simple or appearing fluid collection inferior to the right fallopian tubule which may represe nt a right ovarian cyst. See above. 10-20% decrease in left hydrosalpinx/pyosalpinx. Mild uterine fibroid disease. New trace bilateral pleural effusions. Signer Name: Ra Willard Jr, MD Signed: 06/07/2019 10:14 AM Workstation Name: [id number]
--- NOTE | 2019-06-07 10:38 | Progress Note ---
Assessment and Plan Cultures: Blood culture: negative IR aspirate culture: no growth thus far. GPC on Gram stain. HIV, Syphilis negative. A/P: 43/F with prior h/o ectopic , Chlamydia admitted with lower abdominal pain and fever, found to have: 1) Sepsis 2) Leucocytosis 3) B/L Hydrosalpinx v/s Pyosalpinx: s/p CT guided drainage of the right pyosalpinx with a 8 Fr drain - 30 mL green purulent material removed Recs: cultures have remained negative WBC improving. CT shows interval resolution of R pyosalpinx, also improving L side From ID standpoint, patient can be discharged on PO Augmentin 875 mg BID x 14 days (prescription printed and given to chief unit forester) Follow up outpatient with KNO[facility]ER Jean-Claude Lockhart MD, FACP [facility] ([facility] C: [phone] O: [phone] F: [phone] Subjective Date of service: 06/07/19 Principal diagnosis: abdominal pain, hydrosalpinx Interval history: Remains afebrile. Pain much improved. Overall also feeling much better. Had CT done this morning. Objective - Exam Narrative Exam: Physical Exam: Constitutional: Alert, cooperative. No acute distress Head, Ears, Nose: Normocephalic, atraumatic. External ears, nose normal Eyes: Conjunctivae/corneas clear. No icterus. No ptosis. Neck: Supple, no meningeal signs Cardiovascular: S1, S2 normal. Respiratory: Good air entry, clear to auscultation bilaterally GI: minimal tenderness on the R side, R abdomen dressing +. bowel sounds normal. Musculoskeletal: No pedal edema, no cyanosis. Skin: No rash or abscess Hem/Lymphatic: No palpable cervical or supraclavicular nodes. No lymphangitis Psych: Mood ok. Affect normal Neurological: Awake, alert, oriented. No gross abnormality - Constitutional Vitals: Vital Signs Temp Pulse Resp BP Pulse Ox 98.9 F 81 18 130/67 98 06/07/19 09:05 06/07/19 09:05 06/07/19 09:05 06/07/19 09:05 06/07/19 09:05 Temperature -Last 24 Hours Temperature 98.9 F Temperature 99.2 F Temperature 99.5 F Temperature 98.2 F Temperature 98.3 F Temperature 97.8 F - Labs CBC & Chem 7: 06/07/19 05:30 06/02/19 14:18 Labs: Abnormal lab results 06/07/19 Range/Units 05:30 WBC 13.1 H (4.5-11.0) K/mm3 RBC 2.86 L (3.65-5.03) M/mm3 Hgb 9.3 L (10.1-14.3) gm/dl Hct 27.1 L (30.3-42.9) % MCH 33 H (28-32) pg Plt Count 536 H (140-440) K/mm3 Lymph % (Auto) 11.8 L (13.4-35.0) % [place] % (Auto) 7.7 H (0.0-7.3) % [place] # 1.0 H (0.0-0.8) K/mm3 Seg Neutrophils % 80.0 H (40.0-70.0) % Seg Neutrophils # 10.5 H (1.8-7.7) K/mm3 - Imaging and cardiology CT scan - abdomen: report reviewed, image reviewed CT scan - pelvis: report reviewed, image reviewed (almost resolution of R pyosalpinx. Left also about 20% improved.)
--- NOTE | 2019-06-07 10:52 | Progress Note ---
Assessment and Plan Patient does have persistent left pyosalpinx. All this is diminished in size, this may ultimately require drainage. The CT scanner on which drains are performed is broken today. When it is repaired, we may reevaluate and reassess the patient to determine if the drain placement is necessary. Patient will likely require to be on long-term antibiotics to clear her infections Subjective Date of service: 06/07/19 Principal diagnosis: abdominal pain, hydrosalpinx Interval history: Patient with a history of bilateral pyosalpinx status post placement of a drainage catheter on the right 2 days prior. The patient's white count was elevated yesterday however has drifted down today to 13. The patient states that her abdominal pain has improved. The patient overall feels better. A repeat CT scan was ordered and performed which demonstrates persistent left pyosalpinx which is diminished in size. Objective - Constitutional Vitals: Vital Signs - 12hr 06/07/19 06/07/19 06/07/19 01:40 01:45 05:00 Temperature 99.5 F Pulse Rate 89 Respiratory 18 18 18 Rate Blood Pressure 125/72 O2 Sat by Pulse 100 Oximetry 06/07/19 06/07/19 06:23 09:05 Temperature 99.2 F 98.9 F Pulse Rate 78 81 Respiratory 18 18 Rate Blood Pressure 127/62 130/67 O2 Sat by Pulse 100 98 Oximetry General appearance: Present: no acute distress - EENT Eyes: EOM intact ENT: hearing intact - Neck Neck: supple, normal ROM - Respiratory Respiratory effort: normal - Gastrointestinal General gastrointestinal: Present: soft - Genitourinary Female genitourinary: deferred - Psychiatric Psychiatric: appropriate mood/affect, cooperative - Labs CBC & Chem 7: 06/07/19 05:30 06/02/19 14:18 Labs: Abnormal lab results 06/07/19 Range/Units 05:30 WBC 13.1 H (4.5-11.0) K/mm3 RBC 2.86 L (3.65-5.03) M/mm3 Hgb 9.3 L (10.1-14.3) gm/dl Hct 27.1 L (30.3-42.9) % MCH 33 H (28-32) pg Plt Count 536 H (140-440) K/mm3 Lymph % (Auto) 11.8 L (13.4-35.0) % [place] % (Auto) 7.7 H (0.0-7.3) % [place] # 1.0 H (0.0-0.8) K/mm3 Seg Neutrophils % 80.0 H (40.0-70.0) % Seg Neutrophils # 10.5 H (1.8-7.7) K/mm3 Medications & Allergies - Medications Allergies/Adverse Reactions: Allergies No Known Allergies Allergy (Unverified 06/09/15 14:53) Home Medications: Home Medications Medication Instructions Recorded Confirmed Last Taken Type Amoxicillin/Potassium Clav 1 each PO BID 14 Days #28 tablet 06/07/19 Unknown Rx [Augmentin 350-291 Tablet] Active Medications: Generic Name Dose Route Start Last Admin Trade Name Freq PRN Reason Stop Dose Admin Doxycycline Hyclate 100 mg/ 250 mls @ 250 mls/hr 06/02/19 22:00 06/06/19 21:31 Sodium Chloride IV 250 mls/hr Q12HR [facility]ZQUEZ Administration Protocol Lactated Ringer's 1,000 mls @ 125 mls/hr 06/02/19 22:00 06/06/19 23:50 Lactated Ringers IV 125 mls/hr DIRECT VAZQUEZ Administration Metronidazole 500 mg in 100 mls @ 100 mls/hr 06/04/19 02:00 06/07/19 08:26 Flagyl 500 Mg/100 Ml IV 100 mls/hr Q6H [facility]ZQUEZ Administration Protocol Ceftriaxone Sodium 2 gm in 100 mls @ 200 mls/hr 06/04/19 15:00 06/06/19 10:33 Rocephin/Ns 2 Gm/100 Ml IV 200 mls/hr Q24HR [facility] Administration Protocol Ibuprofen 600 mg 06/02/19 21:45 06/04/19 23:49 Ibuprofen PO 600 mg Q8H PRN Administration Pain, Mild (1-3) Ketorolac Tromethamine 30 mg 06/06/19 12:00 06/07/19 05:00 Toradol IV 06/11/19 11:59 30 mg Q6HR VAZQUEZ Administration Morphine Sulfate 2 mg 06/05/19 14:18 06/06/19 10:35 Morphine IV 2 mg Q6H PRN Administration Pain, Moderate (4-6) Oxycodone/Acetaminophen 2 tab 06/05/19 14:19 06/06/19 16:19 Percocet 5/325 PO 2 tab Q4H PRN Administration Pain, Moderate (4-6)
[2019-06-07] MEDS: DOXYCYCLINE HYCLATE 100 MG in SODIUM CHLORIDE 0.9% 250ML 250 ML IV SCH ×2 (11:13→22:46)
[2019-06-07] MEDS: cefTRIAXone/NS 2 GM/100 ML 2 GM/100 ML BAG IV SCH (12:31)
[2019-06-07] MEDS: LACTATED RINGERS 1,000 ML IV SCH (21:26)
[2019-06-08] MEDS: KETOROLAC 30 MG/1 ML INJ IV SCH (00:20)
[2019-06-08] MEDS: metroNIDAZOLE/NS 500 MG/100 ML 500 MG/100 ML BAG IV SCH (05:01)
[2019-06-08] MEDS: IBUPROFEN 600 MG TAB PO PRN ×2 (05:38→22:11)
--- NOTE | 2019-06-08 14:39 | Progress Note ---
Assessment and Plan A/P POD2 s/p drainage of pyosalpinx followed by IR consider d/c home IV infiltrated changed meds to augmentin which was recommended for 2 weeks Subjective - Subjective Date of service: 06/08/19 Principal diagnosis: abdominal pain, hydrosalpinx Patient reports: appetite normal, voiding normally, pain well controlled, ambulating normally : doing well Objective - Vital Signs Latest vital signs: Vital Signs Temp Pulse Resp BP BP Pulse Ox 06/08/19 11:51 98.6 F 82 18 121/92 06/08/19 08:02 97.6 F 71 18 125/71 06/08/19 06:38 18 06/08/19 06:15 99.2 F 82 18 130/66 100 06/08/19 05:38 18 06/08/19 01:46 98.7 F 83 18 130/69 97 06/08/19 00:50 18 06/08/19 00:20 18 06/07/19 20:23 98.7 F 78 18 128/66 98 06/07/19 16:47 98.4 F 79 18 133/67 96 Intake and Output 06/07/19 06/08/19 06/08/19 23:59 07:59 15:59 Intake Total 580 240 960 Output Total 1010 10 Balance -430 230 960 Intake: IV 100 FLAGYL 500 MG/100 ML 500 100 mg In 100 ml @ 100 mls/hr IV Q6H [facility] Rx#:[id number] Oral 240 960 Intake, Free Water 240 240 Output: Drainage 10 10 Left Abdomen 10 10 Urine 1000 Void 1000 Other: Total, Intake Amount 240 480 Total, Output Amount 400 10 # Voids Void 1 1 - Exam Breasts: Present: normal Cardiovascular: Present: Regular rate, Normal S1 Lungs: Present: Clear to auscultation, Normal air movement Abdomen: Present: normal appearance, soft, normal bowel sounds. Absent: disten tion, tenderness, guarding Uterus: Present: normal, firm, fundal height below umbilicus. Absent: bogginess, tenderness Extremities: Present: normal Incision: Present: normal, dry, intact
--- NOTE | 2019-06-08 18:49 | Progress Note ---
Assessment and Plan Cultures: Blood culture: negative IR aspirate culture: no growth thus far. GPC on Gram stain. HIV, Syphilis negative. A/P: 43/F with prior h/o ectopic , Chlamydia admitted with lower abdominal pain and fever, found to have: 1) Sepsis 2) Leucocytosis 3) B/L Hydrosalpinx v/s Pyosalpinx: s/p CT guided drainage of the right pyosalpinx with a 8 Fr drain - 30 mL green purulent material removed Recs: continue antibiotics awaiting plan regarding possible drainage of L side when discharged, would do PO Augmentin 875 mg BID x 14 days (prescription printed yesterday and given to window unit air conditioning mechanic) Follow up outpatient with [employer] PRODUCT MANAGER Please call with questions. Jean-Claude Lockhart MD, FACP [facility] C: [phone] O: [phone] F: [phone] Subjective Date of service: 06/08/19 Principal diagnosis: abdominal pain, hydrosalpinx Interval history: No fever. Feels well. No complaints. Objective - Exam Narrative Exam: Physical Exam: Constitutional: Alert, cooperative. No acute distress Head, Ears, Nose: Normocephalic, atraumatic. External ears, nose normal Eyes: Conjunctivae/corneas clear. No icterus. No ptosis. Neck: Supple, no meningeal signs Cardiovascular: S1, S2 normal. Respiratory: Good air entry, clear to auscultation bilaterally GI: minimal tenderness on the R side, R abdomen dressing +. bowel sounds normal. Musculoskeletal: No pedal edema, no cyanosis. Skin: No rash or abscess Hem/Lymphatic: No palpable cervical or supraclavicular nodes. No lymphangitis Psych: Mood ok. Affect normal Neurological: Awake, alert, oriented. No gross abnormality - Constitutional Vitals: Vital Signs Temp Pulse Resp BP Pulse Ox 98.1 F 84 18 125/82 100 06/08/19 16:42 06/08/19 16:42 06/08/19 16:42 06/08/19 16:42 06/08/19 06:15 Temperature -Last 24 Hours Temperature 98.1 F Temperature 98.6 F Temperature 97.6 F Temperature 99.2 F Temperature 98.7 F Temperature 98.7 F - Labs CBC & Chem 7: 06/07/19 05:30 06/02/19 14:18
[2019-06-08] MEDS: oxyCODONE /ACETAMINOPHEN 5-325MG TAB PO PRN (19:37)
[2019-06-08] MEDS: AMOXICILLIN/K CLAV 875/125MG TAB PO SCH (22:11)
[2019-06-09] MEDS: KETOROLAC 30 MG/1 ML INJ IV SCH ×4 (01:18→18:33)
[2019-06-09] MEDS: AMOXICILLIN/K CLAV 875/125MG TAB PO SCH (10:06)
--- NOTE | 2019-06-09 12:42 | Progress Note ---
Assessment and Plan A/P POD 3 s/p drainage of pyosalpinx followed by IR- awaiting rounds today to determine disposition consider d/c home today po abx of augmentin Subjective - Subjective Date of service: 06/09/19 Principal diagnosis: abdominal pain, hydrosalpinx Patient reports: appetite normal, voiding normally, pain well controlled, flatus, ambulating normally Objective - Vital Signs Latest vital signs: Vital Signs Temp Pulse Pulse Resp BP BP Pulse Ox 06/09/19 11:09 98.3 F 67 22 116/64 96 06/09/19 07:40 20 06/09/19 07:23 97.6 F 69 22 117/61 96 06/09/19 04:15 98.1 F 59 L 18 123/73 06/08/19 23:39 98.2 F 80 20 137/75 96 06/08/19 22:11 18 06/08/19 19:40 98.2 F 86 20 139/72 98 06/08/19 19:37 18 06/08/19 19:31 80 18 06/08/19 16:42 98.1 F 84 18 125/82 Intake and Output 06/08/19 06/09/19 06/09/19 23:59 07:59 15:59 Intake Total 480 480 480 Balance 480 480 480 Intake: Oral 480 480 480 Other: Total, Intake Amount 480 240 240 Voiding Method Toilet Toilet # Voids 1 Void 1 1 1 - Exam Breasts: Present: normal Cardiovascular: Present: Regular rate, Normal S1 Lungs: Present: Clear to auscultation, Normal air movement Abdomen: Present: normal appearance, soft, normal bowel sounds. Absent: distention, tenderness, guarding Uterus: Present: normal, firm Extremities: Present: normal Deep Tendon Reflex Grade: Normal +2 Incision: Present: normal
[2019-06-09] MEDS: oxyCODONE /ACETAMINOPHEN 5-325MG TAB PO PRN (12:49)
--- NOTE | 2019-06-09 15:34 | Progress Note ---
Assessment and Plan 43-year-old female with pelvic inflammatory disease and bilateral pyosalpinx status post CT-guided drainage of the right pyosalpinx with improvement of her symptoms. Cultures were negative despite positive Gram stain likely due to adequate coverage of organism. Patient will follow up this upcoming Tuesday for tube removal in office. Subjective Date of service: 06/09/19 Principal diagnosis: abdominal pain, hydrosalpinx Interval history: Patient doing much better. Has no significant abdominal pain. Drainage producing minimal output. Patient will follow up next Tuesday for drain removal in office. Objective - Constitutional Vitals: Vital Signs - 12hr 06/09/19 06/09/19 06/09/19 04:15 07:23 07:40 Temperature 98.1 F 97.6 F Pulse Rate 59 L 69 Respiratory 18 22 20 Rate Blood Pressure 117/61 Blood Pressure 123/73 [Left] O2 Sat by Pulse 96 Oximetry 06/09/19 06/09/19 11:09 12:49 Temperature 98.3 F Pulse Rate 67 Respiratory 22 20 Rate Blood Pressure 116/64 Blood Pressure [Left] O2 Sat by Pulse 96 Oximetry General appearance: Present: no acute distress - EENT Eyes: EOM intact ENT: hearing intact - Respiratory Respiratory effort: normal - Gastrointestinal General gastrointestinal: Present: soft, non-tender - Psychiatric Psychiatric: appropriate mood/affect, cooperative - Labs CBC & Chem 7: 06/07/19 05:30 06/02/19 14:18 Medications & Allergies - Medications Allergies/Adverse Reactions: Allergies No Known Allergies Allergy (Unverified 06/09/15 14:53) Home Medications: Home Medications Medication Instructions Recorded Confirmed Last Taken Type Amoxicillin/Potassium Clav 1 each PO BID 14 Days #28 tablet 06/07/19 Unknown Rx [Augmentin 875-125 Tablet] Ibuprofen [Motrin] 600 mg PO Q8H PRN #30 tablet 06/09/19 Unknown Rx oxyCODONE /ACETAMINOPHEN [Percocet 1 tab PO Q6HR PRN #30 tablet 06/09/19 Unknown Rx 5/325] Active Medications: Generic Name Dose Route Start Last Admin Trade Name Freq PRN Reason Stop Dose Admin Amoxicillin/Clavulanate Potassium 1 each 06/08/19 22:00 06/09/19 10:06 Augmentin 875 Mg PO 1 each Q12HR VAZQUEZ Administration Lactated Ringer's 1,000 mls @ 125 mls/hr 12/07/19 22:00 06/07/19 21:26 Lactated Ringers IV 125 mls/hr DIRECT VAZQUEZ Administration Ibuprofen 600 mg 06/02/19 21:45 06/08/19 22:11 Ibuprofen PO 600 mg Q8H PRN Administration Pain, Mild (1-3) Ketorolac Tromethamine 30 mg 06/06/19 12:00 06/09/19 11:28 Toradol IV 06/11/19 11:59 Not Given Q6HR [facility]ZQUEZ Morphine Sulfate 2 mg 06/05/19 14:18 06/06/19 10:35 Morphine IV 2 mg Q6H PRN Administration Pain, Moderate (4-6) Oxycodone/Acetaminophen 2 tab 06/05/19 14:19 06/09/19 12:49 Percocet 5/325 PO 2 tab Q4H PRN Administration Pain, Moderate (4-6)
[2019-06-09 16:41] VITALS: BP 125/69
--- NOTE | 2019-06-21 16:44 | Cat Scan Report ---
EXAM: CT guided 8 Vincentian abdominal drain placement CLINICAL INDICATION: Bilateral hydrosalpinx or pyosalpinx with fever, leukocytosis, and pain with request for drainage DATE: 06/05/19 METAL MOCKUP MAKER: ORTIZ GILL MD MEDICATIONS: Conscious sedation using Versed and fentanyl was performed under guidance of radiologic nursing. Continuous cardiopulmonary monitoring was utilized. PROCEDURE: Following an explanation of the risks, benefits and alternatives; written informed consent was obtained. The patient was brought to the CT suite and placed in the supine position on the CT table. Account Specialist CT was performed of the abdomen and pelvis. After determining the appropriate site, the skin was infiltrated with lidocaine and a finder needle was placed. Intermittent CT was performed until the desired position was identified. The 18 gauge trocar needle was inserted into the right pyosalpinx . Aspiration was performed and sent to the lab for analysis. J wire was then advanced through the needle and into the collection. The needle was exchanged for multiple dilators that were used to serially dilate over the wire. A 8 Fr APD drain was advanced over the wire and metal stiffener. The metal stiffener and wire were removed. Final CT scanning was performed. The pigtail was secured and aspirated until no more material could be aspirated. Sterile bandage was applied. Multiple silk sutures applied. The patient tolerated the procedure well. There were no immediate postprocedural complications. FINDINGS: 1. Initial CT demonstrates bilateral hydrosalpinx with distortion of the right tubo-ovarian complex which has been malpositioned of the abdomen. There is a satisfactory window for CT drainage. 2. Intermittent CT demonstrates the 18 gauge needle was placed in the right tubo-ovarian complex. 3. Wire is coiled in the right tubo-ovarian fluid collection. 4. Final CT documents placement of a 8 Fr drain in the right tubo-ovarian fluid collection. IMPRESSION: Successful CT guided 8 Vincentian abdominal drain placement in a fluid collection/abscess. Discussed with attending BOIL OFF MACHINE OPERATOR CLOTH that to the malpositioned nature of the right tubo-ovarian complex, the patient has significant increase in pain, torsion should be in the differential.
== END 2019-06-09 18:33 | disposition home or self-care (01) | DRG 872 ==
LOC: ED 13:16 → OB 19:06 → OBSVTOIN 06-05 15:55
PROVIDERS: ADMIT Obstetrics & Gynecology; ATTEND Obstetrics & Gynecology
PROC: 0U903ZZ Drainage of Right Ovary, Percutaneous Approach (ICD-10-PCS; principal; 2019-06-05)
PROC: 0U9 Female Reproductive System, Drainage (ICD-10-PCS; 2019-06-05)
DX: A41.9 Sepsis, unspecified organism (principal); N70.93 Salpingitis and oophoritis, unspecified; F17.200 Nicotine dependence, unspecified, uncomplicated; F12.90 Cannabis use, unspecified, uncomplicated; Z72.89 Other problems related to lifestyle
CPT/HCPCS: 10160; 36415; 74177; 76856; 77012; 80053; 81001; 81015; 81025; 83690; 85025; 86592; 87040; 87086; 87116; 87591; 87806; 96365; G0378; C1769; J0690; J0696; J1885; J2250; J2270; J2405; J2543; J3010; J7030; J7050; J7120; Q9967